=== PATIENT | female | born 1985 | race Caucasian/White ===

== ENCOUNTER 2021-06-13 06:30 | Inpatient (IN) | payer OTHER ==
[2021-06-13 08:10] VITALS: BMI 38.7
[2021-06-13] MEDS ORDERED: CITRIC ACID/SODIUM CITRATE 30 ML UNIT-DOSE CUP PO ONE ×2 (08:25)
[2021-06-13] MEDS ORDERED: ELECTROLYTE-148 SOLN 1,000 ML IV SCH ×2 (08:30)
[2021-06-13] MEDS ORDERED: ACETAMINOPHEN 325 MG TABLET (FP) PO PRN (08:41)
[2021-06-13] MEDS ORDERED: IBUPROFEN 800 MG/8 ML IJ IVPB PRN (08:41)
[2021-06-13] MEDS ORDERED: OXYTOCIN 20 UNITS in 0.9% NS 20 UNIT/1,000 ML INFUS.BAG IV SCH (08:45)
[2021-06-13] MEDS ORDERED: morphine SULFATE/PF 0.5 MG/ML (2cc Syringe - QUVA) EP ONE (10:41)
[2021-06-13] MEDS ORDERED: ONDANSETRON 4 MG/2 ML VIAL IVPUSH PRN (10:41)
[2021-06-13] MEDS ORDERED: LACTATED RINGERS SOLUTION 1,000 ML IV SCH (10:45)
[2021-06-13] MEDS ORDERED: OXYTOCIN 20 UNITS in 0.9% NS 20 UNIT/1,000 ML INFUS.BAG IV ONE ×2 (11:18→13:10)
[2021-06-13 11:22] LABS: CORD BASE EXCESS -2.7 mmol/L (0-2); CORD PCO2 43.1 mmHg (30-78); CORD pH 7.345 (7.14-7.44)
[2021-06-14] MEDS: IBUPROFEN 600 MG TABLET (FP) PO PRN ×2 (05:59→13:04)
[2021-06-14] MEDS: DOCUSATE SODIUM 100 MG CAPSULE (FP) PO SCH ×2 (07:29→10:18)
[2021-06-14 08:17] LABS: BASO % 0.2 % (0-2.0); EOS % 0.9 % (0-4.5); HEMATOCRIT 30.7 % (32.4-45.2); HEMOGLOBIN 10.8 GM/dL (10.7-15.3); LYMPH % 11.6 % (8-40); MCH 34.5 pg (25.7-33.7); MCHC 35.2 g/dl (32.0-36.0); MEAN PLT VOLUME 8.4 fl (7.5-11.1); MONO % 6.1 % (3.8-10.2); NEUT % 81.2 % (42.8-82.8); PLATELET COUNT 187 10^3/uL (134-434); RBC 3.13 M/mm3 (3.60-5.2); WHITE BLOOD COUNT 8.7 K/mm3 (4.0-10.0)
[2021-06-14] MEDS: SIMETHICONE 80 MG TAB.CHEW (FP) PO PRN ×2 (13:04→21:48)
[2021-06-14] MEDS: oxyCODONE HCL 5 MG TABLET PO PRN ×2 (14:24→21:48)
[2021-06-15] MEDS: SIMETHICONE 80 MG TAB.CHEW (FP) PO PRN ×5 (03:09→20:41)
[2021-06-15] MEDS: oxyCODONE HCL 5 MG TABLET PO PRN ×3 (03:09→12:44)
[2021-06-15] MEDS: DOCUSATE SODIUM 100 MG CAPSULE (FP) PO SCH (09:37)
[2021-06-15] MEDS ORDERED: BISACODYL 10 MG SUPP.RECT PR PRN (17:04)
[2021-06-15] MEDS: IBUPROFEN 600 MG TABLET (FP) PO PRN (20:41)
[2021-06-16] MEDS: IBUPROFEN 600 MG TABLET (FP) PO PRN (07:40)
[2021-06-16] MEDS: SIMETHICONE 80 MG TAB.CHEW (FP) PO PRN (07:40)
[2021-06-16] MEDS: DOCUSATE SODIUM 100 MG CAPSULE (FP) PO SCH (09:14)
[2021-06-16 09:58] LABS: BASO % 0.6 % (0-2.0); EOS % 1.8 % (0-4.5); HEMATOCRIT 34.8 % (32.4-45.2); HEMOGLOBIN 12.2 GM/dL (10.7-15.3); MCH 33.9 pg (25.7-33.7); MEAN PLT VOLUME 8.3 fl (7.5-11.1); MONO % 5.2 % (3.8-10.2); NEUT % 71.4 % (42.8-82.8); PLATELET COUNT 262 10^3/uL (134-434); RBC 3.58 M/mm3 (3.60-5.2); RDW 13.7 % (11.6-15.6); WHITE BLOOD COUNT 7.3 K/mm3 (4.0-10.0)
[2021-06-16 12:32] VITALS: BP 114/77; PULSE 74; TEMP 98.3
== END 2021-06-16 14:05 | disposition home or self-care (01) | DRG 540 ==
LOC: JLDR 06:30 → J3W 13:12
PROVIDERS: ADMIT Student in an Organized Health Care Education/Training Program; ATTEND Student in an Organized Health Care Education/Training Program
PROC: 10D00Z1 Extraction of Products of Conception, Low, Open Approach (ICD-10-PCS; principal; 2021-06-13)
DX: O34.211 Maternal care for low transverse scar from previous cesarean delivery (principal); O24.425 Gestational diabetes mellitus in childbirth, controlled by oral hypoglycemic drugs; O77.0 Labor and delivery complicated by meconium in amniotic fluid; Z3A.39 39 weeks gestation of pregnancy; Z37.0 Single live birth
CPT/HCPCS: 36415; 36600; 82803; 82962; 85025; 86762; 86850; 86900; 86901; 87350; 88307-TC

== ENCOUNTER 2024-11-13 06:06 | Emergency (ER) | payer OTHER ==
[2024-11-13 06:16] VITALS: BP 98/69; PULSE 68; RESP 16; TEMP 98.7; BMI 24.1
== END 2024-11-13 08:18 | disposition home or self-care (01) ==
LOC: JER 06:06
DX: N64.4 Mastodynia (principal)
CPT/HCPCS: 99283-25